=== PATIENT | female | born 2000 | race Caucasian/White ===

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

== ENCOUNTER 2019-01-02 23:45 | Emergency (ER) | payer BC ==
[~2019-01-02] VITALS: Ht 172.7 cm; Wt 100.0 kg
[2019-01-02] MEDS ORDERED: SERT25TA85 PO (23:52)
[2019-01-03] MEDS ORDERED: ONDANSETRON 4MG/2ML VIAL (J2405) IV ONE (01:30)
[2019-01-03] MEDS ORDERED: NS 1,000 ML IV ONE (01:30)
[2019-01-03] MEDS ORDERED: KETOROLAC 30 MG/ML VIAL (J1885) IV ONE (01:30)
[2019-01-03] MEDS ORDERED: GI COCKTAIL 50ML BTL(HYOSCYAMINE/MAALOX/LIDOCAINE VISCOUS)(1:3:1) PO ONE ×2 (01:30→04:15)
[2019-01-03 01:48] LABS: BASO # 0.1 10^3/uL (0.0-0.2); BASO % 0.4 % (0.0-1.0); EOS # 0.1 10^3/uL (0.0-0.50); HEMATOCRIT 40.1 % (36.0-47.0); HEMOGLOBIN 13.4 g/dl (12.0-15.5); LYMPH # 2.8 10^3/uL (1.5-6.5); LYMPH % 23.2 % (24.0-44.0); MEAN CORPUSCULAR HEMOGLOBIN 28.8 pg (27.0-33.0); MEAN CORPUSCULAR HGB CONC 33.4 g/dl (32.0-36.5); MEAN CORPUSCULAR VOLUME 86.1 fl (80.0-96.0); MONO # 1.1 10^3/uL (0.0-0.8); MONO % 9.3 % (0.0-5.0); NEUTROPHILS % 65.6 % (36.0-66.0); PLATELET COUNT, AUTOMATED 265 10^3/uL (150-450); RED BLOOD COUNT 4.66 10^6/uL (4.00-5.40); WHITE BLOOD COUNT 12.2 10^3/uL (4.0-10.0)
[2019-01-03] MEDS ORDERED: ISOVUE-370 76% 100ML VIAL (Q9967) As Ordered ONE (01:54)
[2019-01-03 02:14] LABS: ALBUMIN 3.3 GM/DL (3.2-5.2); ALT/SGPT 164 U/L (12-78); BILIRUBIN,DIRECT < 0.1 MG/DL (0.0-0.2); BILIRUBIN,TOTAL 0.2 MG/DL (0.2-1.0); LIPASE 172 U/L (73-393); TOTAL PROTEIN 7.1 GM/DL (6.4-8.2)
--- NOTE | 2019-01-03 03:18 | REPVR ---
EXAM: CT Abdomen and Pelvis With Contrast EXAM DATE/TIME: 01/03/2019 2:09 AM CLINICAL HISTORY: 18 years old, female; Abdominal pain; Epigastric; Additional info: Llq and epigastric pain, diarrhea TECHNIQUE: Imaging protocol: Axial computed tomography images of the abdomen and pelvis with intravenous contrast. Coronal and sagittal reformatted images were created and reviewed. Radiation optimization: All CT scans at this facility use at least one of these dose optimization techniques: automated exposure control; mA and/or kV adjustment per patient size (includes targeted exams where dose is matched to clinical indication); or iterative reconstruction. Contrast material: ISOVUE 370; Contrast volume: 100 ml; Contrast route: IV; COMPARISON: No relevant prior studies available. FINDINGS: Lungs: Minimal bibasilar fibro-atelectatic change and patchy groundglass infiltrates. Minimal 3 x 5 mm noncalcified nodule in lateral left costophrenic sulcus. Liver: Normal. No mass. Gallbladder and bile ducts: The gallbladder is contracted with no stones. Pancreas: Normal. No ductal dilation. Spleen: Normal. No splenomegaly. Adrenals: Normal. No mass. Kidneys and ureters: Normal. No hydronephrosis. Stomach and bowel: Normal. No obstruction. No mucosal thickening. Appendix: A normal retrocecal appendix is seen. Intraperitoneal space: Normal. No free air. No significant fluid collection. Vasculature: Normal. No abdominal aortic aneurysm. Lymph nodes: Normal. No enlarged lymph nodes. Bladder: There is bladder wall thickening, however, the bladder is nondistended and is nonspecific. Reproductive: Unremarkable as visualized. Bones/joints: No acute fracture. No dislocation. Soft tissues: Unremarkable. IMPRESSION: 1. Minimal bibasilar fibro-atelectatic change and patchy groundglass infiltrates. 2. Noncalcified nodule in the lateral left costophrenic sulcus measuring approximately 4 mm. For patients at low risk (minimal or absent history of smoking and of other known risk factors), no routine follow-up is indicated. For patients at high risk (history of smoking or of other known risk factors), consider optional CT at 12 months. (Lani et al., Fleischner Society, 2017). 3. There is bladder wall thickening, however, the bladder is nondistended and is nonspecific. Cystitis is not excluded. 4. Otherwise negative CT abdomen/pelvis. Electronically signed by: Tyler Breaux On 01/03/2019 03:17:33 AM
[2019-01-03] MEDS ORDERED: POTASSIUM CHLORIDE 10 MEQ SR TABLET PO ONE (03:45)
[2019-01-03] MEDS ORDERED: PANTOPRAZOLE 40MG INJ (PROTONIX) (C9113) IV ONE (04:15)
[2019-01-03] MEDS ORDERED: SUCRALFATE SUSP 1GM/10ML UD PO ONE (04:15)
[2019-01-03] MEDS ORDERED: SUCR1SS PO (04:16)
[2019-01-03] MEDS ORDERED: PROT1TAB2 PO (04:16)
[2019-01-03 04:28] VITALS: BP 114/77
--- NOTE | 2019-01-03 13:24 | ED PDOC ---
Post-Departure Follow-Up marie narvaez faxed fomral report of ct abd/p for fu Sigifredo Mancilla MD Jan 03, 2019 13:24
== END 2019-01-03 04:40 | disposition home or self-care (01) ==
LOC: M ED 23:45
DX: K52.9 Noninfective gastroenteritis and colitis, unspecified (principal); K21.9 Gastro-esophageal reflux disease without esophagitis; Z79.899 Other long term (current) drug therapy; F17.210 Nicotine dependence, cigarettes, uncomplicated
CPT/HCPCS: 74177; 80047; 80076; 81001; 83690; 84702; 85025; 87880; 96361; 96374; 96375; 99284; C9113; J1885; J2405; Q9967

== ENCOUNTER → 2019-01-03 | Outpatient (CLI) | payer BC ==
[~2019-01-03] MED LIST changes: +ACE-45 XX; +ALIG4CAP PO; +HYDR-3363 PO; +IBUP80TA PO; +PEPC1TAB5 PO; +PROT1TAB2 PO; +SERT25TA85 PO; +SUCR1SS PO
== END ==
LOC: M WUC 15:46
PROVIDERS: ATTEND Physician Assistant
DX: R11.0 Nausea (principal); R10.13 Epigastric pain

== ENCOUNTER 2019-03-04 21:28 | Emergency (ER) | payer BC, MEDICAID ==
[~2019-03-04] VITALS: Ht 172.7 cm; Wt 102.3 kg
[~2019-03-04 21:28] MED LIST changes: -ACE-45 XX; -ALIG4CAP PO; -HYDR-3363 PO; -IBUP80TA PO; -PEPC1TAB5 PO
[2019-03-04 22:10] LABS: BASO # 0.1 10^3/uL (0.0-0.2); BASO % 0.5 % (0.0-1.0); EOS # 0.1 10^3/uL (0.0-0.50); EOS % 0.6 % (0.0-3.0); HEMATOCRIT 39.9 % (36.0-47.0); HEMOGLOBIN 13.4 g/dl (12.0-15.5); LYMPH # 2.7 10^3/uL (1.5-6.5); LYMPH % 27.4 % (24.0-44.0); MEAN CORPUSCULAR HEMOGLOBIN 29.4 pg (27.0-33.0); MEAN CORPUSCULAR HGB CONC 33.6 g/dl (32.0-36.5); MEAN CORPUSCULAR VOLUME 87.5 fl (80.0-96.0); MONO # 0.5 10^3/uL (0.0-0.8); MONO % 5.5 % (0.0-5.0); NEUTROPHILS # 6.4 10^3/uL (1.8-7.7); NEUTROPHILS % 65.7 % (36.0-66.0); PLATELET COUNT, AUTOMATED 263 10^3/uL (150-450); RED BLOOD COUNT 4.56 10^6/uL (4.00-5.40); WHITE BLOOD COUNT 9.7 10^3/uL (4.0-10.0)
[2019-03-04 22:36] LABS: ALBUMIN 3.7 GM/DL (3.2-5.2); ALT/SGPT 20 U/L (12-78); BILIRUBIN,DIRECT < 0.1 MG/DL (0.0-0.2); BILIRUBIN,TOTAL 0.2 MG/DL (0.2-1.0); BLOOD UREA NITROGEN 9 MG/DL (7-18); CALCIUM LEVEL 8.8 MG/DL (8.5-10.1); CARBON DIOXIDE LEVEL 27 MEQ/L (21-32); CHLORIDE LEVEL 110 MEQ/L (98-107); CREATININE FOR GFR 0.76 MG/DL (0.55-1.30); GLUCOSE, FASTING 121 MG/DL (70-100); LIPASE 102 U/L (73-393); POTASSIUM SERUM 3.5 MEQ/L (3.5-5.1); SODIUM LEVEL 141 MEQ/L (136-145); TOTAL PROTEIN 7.1 GM/DL (6.4-8.2)
[2019-03-05] MEDS ORDERED: KETOROLAC TROMETHAMINE 10 MG TAB PO ONE (01:00)
[2019-03-05] MEDS ORDERED: PEPC1TAB5 PO (02:05)
[2019-03-05] MEDS ORDERED: ALIG4CAP PO (02:06)
[2019-03-05 02:07] VITALS: BP 136/91
--- NOTE | 2019-03-07 17:58 | REP ---
Clinical: Acute at upper quadrant pain abdominal pain. Technique: Vega scale ultrasound using curved array transducer. Findings: The liver and pancreas are normal in contour, size, and echogenicity without focal hepatic or pancreatic lesions identified. The gallbladder is normal without gallstones, wall thickening or pericholecystic fluid. No biliary ductal dilatation is appreciated, and the common bile duct measures 2.7 mm diameter. The right kidney is normal in reniform shape without hydronephrosis and measures 11.8 x 5.7 x 5.0 cm. No ascites. Visualized portions of the abdominal aorta normal. Impression: Normal right upper quadrant and gallbladder abdominal ultrasound. Electronically Signed by Dipak Vaughan MD 03/07/2019 05:50 P
== END 2019-03-05 02:14 | disposition home or self-care (01) ==
LOC: M ED 21:28
DX: K21.9 Gastro-esophageal reflux disease without esophagitis (principal); Z79.899 Other long term (current) drug therapy; Z77.098 Contact with and (suspected) exposure to other hazardous, chiefly nonmedicinal, chemicals

== ENCOUNTER 2019-03-17 21:01 | Emergency (ER) | payer OTHER, MEDICAID ==
[~2019-03-17] VITALS: Ht 172.7 cm; Wt 100.0 kg
[~2019-03-17 21:01] MED LIST changes: +ALIG4CAP PO; +PEPC1TAB5 PO
[2019-03-17] MEDS ORDERED: HYDR-3363 PO (21:06)
[2019-03-17 23:23] VITALS: BP 121/70
--- NOTE | 2019-03-18 08:16 | REP ---
Nasal bone series: Three views. History: Pain after a fall. Findings: Three views of the nasal bones demonstrate intact nasal bone and inferior maxillary spine. Lingual jewelry is noted in the oral cavity. No facial fracture is appreciated. Orbital margins are intact. Paranasal sinuses appear clear. Impression: Negative nasal bone series. Electronically Signed by Kun Woodard MD 03/18/2019 08:06 A
== END 2019-03-17 23:23 | disposition home or self-care (01) ==
LOC: M ED 21:01
DX: S02.2XXA Fracture of nasal bones, initial encounter for closed fracture (principal); X58.XXXA Exposure to other specified factors, initial encounter; Y92.89 Other specified places as the place of occurrence of the external cause; K21.9 Gastro-esophageal reflux disease without esophagitis; Z79.899 Other long term (current) drug therapy; F17.210 Nicotine dependence, cigarettes, uncomplicated

== ENCOUNTER 2019-04-09 20:59 | Emergency (ER) | payer MEDICAID, OTHER ==
[~2019-04-09] VITALS: Ht 172.7 cm; Wt 100.0 kg
[2019-04-09 20:59] VITALS: BP 131/83
[~2019-04-09 20:59] MED LIST changes: +HYDR-3363 PO
[2019-04-09] MEDS ORDERED: IBUP80TA PO (21:36)
[2019-04-09] MEDS ORDERED: ACE-45 XX (21:36)
== END 2019-04-09 21:45 | disposition home or self-care (01) ==
LOC: M ED 20:59
DX: M54.5 Low back pain (principal); J45.909 Unspecified asthma, uncomplicated; F33.9 Major depressive disorder, recurrent, unspecified; F41.9 Anxiety disorder, unspecified; K21.9 Gastro-esophageal reflux disease without esophagitis; Z79.899 Other long term (current) drug therapy; F17.210 Nicotine dependence, cigarettes, uncomplicated